=== PATIENT | female | born 1990 | race Two or more races ===

== ENCOUNTER 2016-09-19 11:14 | Emergency (ER) | payer MEDICAID ==
[~2016-09-19] VITALS: Ht 167.6 cm; Wt 79.4 kg
[2016-09-19 11:24] VITALS: BP 128/85
== END 2016-09-19 12:59 | disposition home or self-care (01) ==
LOC: ER 11:16
DX: K64.8 Other hemorrhoids (principal); J45.909 Unspecified asthma, uncomplicated; Z90.89 Acquired absence of other organs; Z88.9 Allergy status to unspecified drugs, medicaments and biological substances

== ENCOUNTER → 2016-09-19 | Emergency (ER) | payer MEDICAID ==
[~2016-09-19] MED LIST: MEDR150I IM
== END | disposition left against medical advice (07) ==
LOC: ER 01:36
DX: K92.1 Melena (principal); Z53.21 Procedure and treatment not carried out due to patient leaving prior to being seen by health care provider

== ENCOUNTER 2016-10-24 02:28 | Emergency (ER) | payer MEDICAID ==
[~2016-10-24] VITALS: Ht 160 cm; Wt 77.1 kg
[2016-10-24 06:44] LABS: Basophils # (auto) 0 uL; Basophils % (auto) 0.4 % (0.0-2.0); Eosinophils # (auto) 0 uL; Eosinophils % (auto) 0.3 % (0.0-7.0); Hematocrit 42.4 % (36.0-46.0); Hemoglobin 14.5 g/dL (12.2-16.2); Lymphocytes % (auto) 30.5 % (10.0-50.0); Mean Corpuscular Hemoglobin 32.1 pg (28.0-32.0); Mean Corpuscular Hgb Conc. 34.3 g/dL (32.0-36.0); Mean Corpuscular Volume 93.5 fL (80.0-100.0); Mean Platelet Volume 8.2 fL (7.4-10.4); Monocytes # (auto) 0.3 uL; Monocytes % (auto) 4.9 % (0.0-12.0); Neutrophils # (auto) 4.3 uL; Neutrophils % (auto) 63.9 % (37.0-80.0); Platelet Count (auto) 291 10^3/uL (140-450); Red Cell Distribution Width 13.1 % (11.6-16.0); White Blood Cell 6.7 10^3/uL (4.4-10.8)
[2016-10-24 07:17] LABS: Albumin 4.1 g/dL (3.4-5.0); BUN/Creatinine Ratio 14.5; Calcium 8.1 mg/dL (8.5-10.1); Magnesium 2.1 mg/dL (1.6-2.6); Potassium 3.9 mmol/L (3.5-5.1)
[2016-10-24 07:20] LABS: Total Protein 7.6 g/dL (6.4-8.2)
[2016-10-24 08:23] VITALS: BP 107/56
== END 2016-10-24 08:46 | disposition home or self-care (01) ==
LOC: ER 02:28
DX: S93.602A Unspecified sprain of left foot, initial encounter (principal); J45.909 Unspecified asthma, uncomplicated; F10.10 Alcohol abuse, uncomplicated; R73.9 Hyperglycemia, unspecified; F41.9 Anxiety disorder, unspecified; Z90.49 Acquired absence of other specified parts of digestive tract; Z88.8 Allergy status to other drugs, medicaments and biological substances; W18.39XA Other fall on same level, initial encounter; Y93.89 Activity, other specified; Y99.8 Other external cause status; Y92.099 Unspecified place in other non-institutional residence as the place of occurrence of the external cause
CPT/HCPCS: 36415; 73630; 80053; 80320; 82962; 83735; 84702; 85025

== ENCOUNTER 2017-03-11 18:51 | Emergency (ER) | payer MEDICAID ==
[~2017-03-11] VITALS: Ht 167.6 cm; Wt 74.8 kg
[2017-03-11 21:05] VITALS: BP 137/85
== END 2017-03-11 22:04 | disposition home or self-care (01) ==
LOC: ER 18:52
DX: F41.0 Panic disorder [episodic paroxysmal anxiety] (principal); Z90.49 Acquired absence of other specified parts of digestive tract; J45.909 Unspecified asthma, uncomplicated
CPT/HCPCS: 71020

== ENCOUNTER 2017-06-25 14:01 | Emergency (ER) | payer MEDICAID ==
[~2017-06-25] VITALS: Ht 167.6 cm; Wt 73.0 kg
[2017-06-25 14:22] VITALS: BP 131/90
[2017-06-25] MEDS ORDERED: cefTRIAXone SOD 1,000 MG VL IM ONE (16:00)
[2017-06-25 16:19] LABS: Urine Blood TRACE /uL (Negative); Urine Color Yellow (Yellow); Urine Glucose Normal (Normal); Urine Ketone 1+ (Negative); Urine Mucus FEW (None Seen); Urine Nitrite Negative (Negative); Urine RBC 3 /hpf (0 - 4); Urine Squamous Epithelial Cell MANY /hpf (<5)
[2017-06-25 16:54] LABS: Urine Bilirubin Negative (Negative)
== END 2017-06-25 16:28 | disposition home or self-care (01) ==
LOC: ER 14:01
DX: N39.0 Urinary tract infection, site not specified (principal); J45.909 Unspecified asthma, uncomplicated; Z91.018 Allergy to other foods; Z90.89 Acquired absence of other organs
CPT/HCPCS: 81001; 81025; 96372; 99283; J0696

== ENCOUNTER 2017-07-17 01:45 | Inpatient (IN) | payer MEDICAID ==
[~2017-07-17] VITALS: Ht 162.6 cm; Wt 78.5 kg
[2017-07-17 03:25] LABS: Basophils # (auto) 0 uL; Basophils % (auto) 0.1 % (0.0-2.0); Eosinophils # (auto) 0.1 uL; Eosinophils % (auto) 1.5 % (0.0-7.0); Hematocrit 40.5 % (36.0-46.0); Hemoglobin 13.9 g/dL (12.2-16.2); Lymphocytes % (auto) 42.1 % (10.0-50.0); Mean Corpuscular Hemoglobin 32.4 pg (28.0-32.0); Mean Corpuscular Hgb Conc. 34.4 g/dL (32.0-36.0); Mean Platelet Volume 7.9 fL (6.9-10.8); Monocytes # (auto) 0.8 uL; Monocytes % (auto) 8.1 % (0.0-12.0); Neutrophils # (auto) 4.6 uL; Neutrophils % (auto) 48.2 % (37.0-80.0); Nucleated Red Blood Cells % 0.1 %; Platelet Count (auto) 252 10^3/uL (140-450); Red Cell Distribution Width 12.9 % (11.8-14.3); White Blood Cell 9.6 10^3/uL (4.4-10.8)
[2017-07-17 04:18] LABS: Albumin 3.8 g/dL (3.4-5.0); BUN/Creatinine Ratio 12.3; Potassium 3.6 mmol/L (3.5-5.1)
[2017-07-17 04:55] LABS: Bilirubin, Total 0.8 mg/dL (0.2-1.0); Total Protein 7.8 g/dL (6.4-8.2)
[2017-07-17 05:51] LABS: Urine Bilirubin Negative (Negative); Urine Blood 1+ /uL (Negative); Urine Ca Oxalate Crystal MOD (None Seen); Urine Color Yellow (Yellow); Urine Glucose Normal (Normal); Urine Hyaline Cast FEW /lpf (0 - 2); Urine Ketone Negative (Negative); Urine Nitrite Negative (Negative); Urine RBC 6 /hpf (0 - 4); Urine Squamous Epithelial Cell FEW /hpf (<5); Urine Urobilinogen Normal (Negative); Urine pH 5.5 (5.0-8.0)
[2017-07-17] MEDS ORDERED: KETOROLAC TROMETH 30 MG/ML 1ML VIAL IV ONE (08:45)
[2017-07-17] MEDS ORDERED: SODIUM CHLORIDE 0.9% 1,000 ML IV ONE (08:45)
[2017-07-17] MEDS ORDERED: MORPHINE SULF INJ 2 MG/ML SYRINGE 1ML IV PRN (09:45)
[2017-07-17] MEDS: FAMOTIDINE (10MG/ML) 2ML VL IV SCH ×2 (10:13→22:13)
[2017-07-17] MEDS: SODIUM CHLORIDE 0.9% 1,000 ML IV SCH ×3 (10:13→23:21)
[2017-07-17 11:24] VITALS: BP 119/74
[2017-07-17 12:36] VITALS: BP 113/69
[2017-07-17] MEDS: metroNIDAZOLE 500MG/100ML 100 ML IV SCH ×2 (13:27→22:12)
[2017-07-17 16:56] VITALS: BP 109/72
[2017-07-17 18:29] LABS: Cholesterol 162 mg/dL (< 200); HDL Cholesterol 41 mg/dL (40-59); LDL Cholesterol 104 mg/dL (< 100); Triglycerides 229 mg/dL (< 150)
[2017-07-17] MEDS: MORPHINE SULF INJ 2 MG/ML SYRINGE 1ML IV PRN ×2 (18:39→23:26)
[2017-07-17 22:00] VITALS: BP 129/77
[2017-07-18 04:58] VITALS: BP 100/57
[2017-07-18 05:58] LABS: Basophils # (auto) 0 uL; Basophils % (auto) 0.3 % (0.0-2.0); Eosinophils # (auto) 0.1 uL; Eosinophils % (auto) 1.5 % (0.0-7.0); Hemoglobin 12.7 g/dL (12.2-16.2); Lymphocytes # (auto) 3.7 uL; Mean Corpuscular Hemoglobin 32.6 pg (28.0-32.0); Mean Corpuscular Hgb Conc. 34.3 g/dL (32.0-36.0); Mean Corpuscular Volume 95.1 fL (80.0-100.0); Mean Platelet Volume 7.4 fL (6.9-10.8); Monocytes # (auto) 0.6 uL; Monocytes % (auto) 7.4 % (0.0-12.0); Neutrophils # (auto) 3.3 uL; Neutrophils % (auto) 42.8 % (37.0-80.0); Nucleated Red Blood Cells % 0.1 %; Platelet Count (auto) 207 10^3/uL (140-450); Red Cell Distribution Width 12.9 % (11.8-14.3); White Blood Cell 7.7 10^3/uL (4.4-10.8)
[2017-07-18] MEDS: metroNIDAZOLE 500MG/100ML 100 ML IV SCH ×3 (06:09→22:00)
[2017-07-18] MEDS: SODIUM CHLORIDE 0.9% 1,000 ML IV SCH ×3 (06:10→17:51)
[2017-07-18 06:48] LABS: Cholesterol 148 mg/dL (< 200); HDL Cholesterol 38 mg/dL (40-59); LDL Cholesterol 98 mg/dL (< 100); Triglycerides 223 mg/dL (< 150)
[2017-07-18 06:50] LABS: Albumin 3.1 g/dL (3.4-5.0); BUN/Creatinine Ratio 13.2; Bilirubin, Total 1.5 mg/dL (0.2-1.0); Calcium 7.8 mg/dL (8.5-10.1); Potassium 3.8 mmol/L (3.5-5.1)
[2017-07-18] MEDS: MORPHINE SULF INJ 2 MG/ML SYRINGE 1ML IV PRN ×3 (08:42→19:01)
[2017-07-18] MEDS: PROMETHAZINE HCL 25 MG/ML 1ML IV PRN ×3 (08:42→19:02)
[2017-07-18] MEDS: cefTRIAXone 1GM/10ml IVPUSH 10 ML IV SCH (08:44)
[2017-07-18 08:57] VITALS: BP 99/57
[2017-07-18] MEDS: FAMOTIDINE (10MG/ML) 2ML VL IV SCH ×2 (10:01→22:00)
[2017-07-18 13:00] VITALS: BP 98/65
[2017-07-18 17:00] VITALS: BP 108/66
[2017-07-18 20:00] VITALS: BP 121/70
[2017-07-18 21:49] VITALS: BP 121/70
[2017-07-19] MEDS: SODIUM CHLORIDE 0.9% 1,000 ML IV SCH ×4 (01:34→21:34)
[2017-07-19] MEDS: PROMETHAZINE HCL 25 MG/ML 1ML IV PRN ×6 (02:41→20:30)
[2017-07-19] MEDS: MORPHINE SULF INJ 2 MG/ML SYRINGE 1ML IV PRN ×5 (02:42→20:31)
[2017-07-19 04:45] VITALS: BP 108/63
[2017-07-19] MEDS: metroNIDAZOLE 500MG/100ML 100 ML IV SCH (06:06)
[2017-07-19 06:27] LABS: Amylase 76 U/L (25-115)
[2017-07-19 09:05] VITALS: BP 103/63
[2017-07-19] MEDS: FAMOTIDINE (10MG/ML) 2ML VL IV SCH ×2 (10:24→22:00)
[2017-07-19] MEDS: cefTRIAXone 1GM/10ml IVPUSH 10 ML IV SCH (10:24)
[2017-07-19 14:06] VITALS: BP 113/77
[2017-07-19 16:40] VITALS: BP 162/92
[2017-07-19 22:00] VITALS: BP 116/78
[2017-07-19] MEDS ORDERED: PANTOPRAZOLE 40 MG/10 ML VIAL IV ONE (23:26)
[2017-07-20] MEDS: MORPHINE SULF INJ 2 MG/ML SYRINGE 1ML IV PRN ×6 (00:56→22:27)
[2017-07-20] MEDS: SODIUM CHLORIDE 0.9% 1,000 ML IV SCH ×3 (04:14→16:11)
[2017-07-20 05:19] VITALS: BP 99/57
[2017-07-20] MEDS: PROMETHAZINE HCL 25 MG/ML 1ML IV PRN ×7 (06:33→22:28)
[2017-07-20 08:00] VITALS: BP 117/70
[2017-07-20] MEDS: cefTRIAXone 1GM/10ml IVPUSH 10 ML IV SCH (10:44)
[2017-07-20] MEDS: FAMOTIDINE (10MG/ML) 2ML VL IV SCH ×2 (10:45→22:26)
[2017-07-20 13:00] VITALS: BP 111/66
[2017-07-20 17:30] VITALS: BP 124/67
[2017-07-20 23:51] VITALS: BP 120/81
[2017-07-21] MEDS: SODIUM CHLORIDE 0.9% 1,000 ML IV SCH ×2 (00:42→07:06)
[2017-07-21 05:24] VITALS: BP 100/59
[2017-07-21 09:00] VITALS: BP 107/59
[2017-07-21] MEDS: MORPHINE SULF INJ 2 MG/ML SYRINGE 1ML IV PRN (09:19)
[2017-07-21] MEDS: cefTRIAXone 1GM/10ml IVPUSH 10 ML IV SCH (09:25)
[2017-07-21] MEDS: FAMOTIDINE (10MG/ML) 2ML VL IV SCH (09:52)
[2017-07-21 12:48] VITALS: BP 119/54
== END 2017-07-21 14:55 | disposition home or self-care (01) | DRG 463 ==
LOC: ER 01:45 → OVERFLOW 01:46 → WEST WING 10:37
PROVIDERS: ADMIT Internal Medicine; ATTEND Internal Medicine
DX: N39.0 Urinary tract infection, site not specified (principal); K85.90 Acute pancreatitis without necrosis or infection, unspecified; E03.9 Hypothyroidism, unspecified; J45.909 Unspecified asthma, uncomplicated; Z82.3 Family history of stroke; Z82.49 Family history of ischemic heart disease and other diseases of the circulatory system; Z83.3 Family history of diabetes mellitus; Z80.9 Family history of malignant neoplasm, unspecified; Z90.49 Acquired absence of other specified parts of digestive tract; Z90.89 Acquired absence of other organs; Z91.018 Allergy to other foods
CPT/HCPCS: 36415; 71010; 74176; 76700; 80053; 80061; 81001; 82150; 83690; 83735; 84439; 84443; 84481; 84702; 85025; 85652; 86141; 87086; 87493; 96365; 96375; C9113; J1885; J3490

== ENCOUNTER 2018-03-30 12:26 | Emergency (ER) | payer MEDICAID ==
[~2018-03-30] VITALS: Ht 167.6 cm; Wt 78.9 kg
[2018-03-30 12:29] VITALS: BP 144/103
[2018-03-30] MEDS ORDERED: LOPERAMIDE HCL 2 MG CAP PO ONE (14:00)
[2018-03-30] MEDS ORDERED: DICYCLOMINE HCL (10MG/ML) 2 ML AMPULE IM ONE (14:00)
== END 2018-03-30 14:26 | disposition home or self-care (01) ==
LOC: ER 12:26
DX: K52.9 Noninfective gastroenteritis and colitis, unspecified (principal); J45.909 Unspecified asthma, uncomplicated; E07.9 Disorder of thyroid, unspecified; Z90.49 Acquired absence of other specified parts of digestive tract
CPT/HCPCS: 96372; 99283; J0500

== ENCOUNTER 2018-06-12 18:35 | Emergency (ER) | payer MEDICAID ==
[~2018-06-12] VITALS: Ht 167.6 cm; Wt 78.0 kg
[2018-06-12 18:58] VITALS: BP 144/85
[2018-06-12 19:21] LABS: Urine Bacteria FEW /hpf (None Seen); Urine Blood 1+ /uL (Negative); Urine WBC 5 /hpf (0 - 5)
[2018-06-12] MEDS ORDERED: cefTRIAXone SOD 1,000 MG VL IM ONE (22:30)
== END 2018-06-12 22:17 | disposition home or self-care (01) ==
LOC: ER 18:35
DX: N39.0 Urinary tract infection, site not specified (principal); J45.909 Unspecified asthma, uncomplicated; Z88.6 Allergy status to analgesic agent; Z91.018 Allergy to other foods
CPT/HCPCS: 81001; 81025; 96372; 99284; J0696

== ENCOUNTER 2018-08-29 23:33 | Emergency (ER) | payer MEDICAID ==
[~2018-08-29] VITALS: Ht 167.6 cm; Wt 76.7 kg
[2018-08-29 23:52] VITALS: BP 140/100
[2018-08-30 02:12] LABS: Urine Bacteria FEW /hpf (None Seen); Urine Blood 2+ /uL (Negative); Urine Hyaline Cast FEW /lpf (0 - 2); Urine Mucus FEW (None Seen); Urine Specific Gravity 1.021 (1.001-1.035); Urine WBC 1 /hpf (0 - 5)
== END 2018-08-30 03:29 | disposition home or self-care (01) ==
LOC: ER 23:47
DX: N39.0 Urinary tract infection, site not specified (principal); J45.909 Unspecified asthma, uncomplicated; Z88.6 Allergy status to analgesic agent; Z91.018 Allergy to other foods
CPT/HCPCS: 81001

== ENCOUNTER 2019-09-07 16:42 | Emergency (ER) | payer MEDICAID ==
[~2019-09-07] VITALS: Ht 167.6 cm; Wt 81.2 kg
[2019-09-07 18:48] VITALS: BP 156/43
[2019-09-07] MEDS ORDERED: DexAMETHasone SOD PHOS 10MG/1ML VIAL INJ IM ONE (19:15)
[2019-09-07] MEDS ORDERED: cefTRIAXone SOD 1,000 MG VL IM ONE (19:15)
[2019-09-07] MEDS ORDERED: LIDOCAINE W/ EPINEPHRINE 2% INJ 20ML VIAL IJ ONE (19:30)
[2019-09-07] MEDS ORDERED: HYDROcodone-ACET 10/325MG TAB PO ONE (19:30)
== END 2019-09-07 20:03 | disposition home or self-care (01) ==
LOC: ER 16:42
DX: N61.1 Abscess of the breast and nipple (principal); J45.909 Unspecified asthma, uncomplicated; E07.9 Disorder of thyroid, unspecified; Z88.6 Allergy status to analgesic agent; Z91.018 Allergy to other foods
CPT/HCPCS: 96372; 99283; J0696; J1100

== ENCOUNTER 2019-09-08 15:34 | Emergency (ER) | payer MEDICAID ==
[~2019-09-08] VITALS: Ht 167.6 cm; Wt 81.2 kg
[2019-09-08 15:47] VITALS: BP 155/82
== END 2019-09-08 19:29 | disposition home or self-care (01) ==
LOC: ER 15:34
DX: J45.909 Unspecified asthma, uncomplicated (principal); Z48.01 Encounter for change or removal of surgical wound dressing; Z88.6 Allergy status to analgesic agent

== ENCOUNTER → 2019-11-03 | Emergency (ER) | payer MEDICAID ==
[~2019-11-03] VITALS: Ht 167.6 cm; Wt 77.1 kg
[~2019-11-03] MED LIST changes: +LORazepam 0.5 MG TAB PO ONE
[2019-11-04 01:32] LABS: Basophils # (auto) 0 10 ^3/uL (0-0.2); Basophils % (auto) 0.5 % (0.0-2.0); Eosinophils # (auto) 0.1 10 ^3/uL (0-0.8); Eosinophils % (auto) 1.5 % (0.0-7.0); Hematocrit 39.5 % (36.0-46.0); Hemoglobin 13.8 g/dL (12.2-16.2); Lymphocytes # (auto) 3.8 10 ^3/uL (0.4-5.4); Lymphocytes % (auto) 43.7 % (10.0-50.0); Mean Corpuscular Hemoglobin 33.2 pg (28.0-32.0); Mean Corpuscular Hgb Conc. 35.1 g/dL (32.0-36.0); Mean Corpuscular Volume 94.8 fL (80.0-100.0); Monocytes # (auto) 0.6 10 ^3/uL (0-1.3); Monocytes % (auto) 6.7 % (0.0-12.0); Neutrophils # (auto) 4.2 10 ^3/uL (1.6-8.6); Neutrophils % (auto) 47.6 % (37.0-80.0); Nucleated Red Blood Cells % 0.3 %; Platelet Count (auto) 224 10^3/uL (140-450); Red Blood Cells 4.16 10^6/uL (4.0-5.20); Red Cell Distribution Width 13.2 % (11.8-14.3); White Blood Cell 8.8 10^3/uL (4.4-10.8)
[2019-11-04 01:54] LABS: Alanine Aminotransferase 61 U/L (13-56); Albumin 3.8 g/dL (3.4-5.0); Anion Gap 8 (5-15); Aspartate Aminotransferase 42 U/L (15-37); BUN/Creatinine Ratio 9.8; Blood Urea Nitrogen 9 mg/dL (7-18); Calcium 9.1 mg/dL (8.5-10.1); Carbon Dioxide 24 mmol/L (21-32); Chloride 104 mmol/L (98-107); GFR African American 94 mL/min; GFR Non-African American 78 mL/min; Glucose 194 mg/dL (74-106); Magnesium 1.6 mg/dL (1.6-2.6); Potassium 3.4 mmol/L (3.5-5.1); Sodium 136 mmol/L (136-145)
[2019-11-04 01:59] LABS: Alkaline Phosphatase 83 U/L (45-117); Bilirubin, Total 0.5 mg/dL (0.2-1.0); Total Protein 7.9 g/dL (6.4-8.2)
[2019-11-04 02:03] LABS: Beta HCG, Quantitative < 1 mlU/mL (1-3)
[2019-11-04 02:19] LABS: INR 0.93 (0.9-1.15); Partial Thromboplastin Time 27.1 sec (23.64-32.05)
[2019-11-04 03:00] VITALS: BP 135/87
== END | disposition home or self-care (01) ==
LOC: ER 23:29
DX: R07.89 Other chest pain (principal); F41.9 Anxiety disorder, unspecified; J45.909 Unspecified asthma, uncomplicated; E07.9 Disorder of thyroid, unspecified; Z88.6 Allergy status to analgesic agent; Z91.018 Allergy to other foods
CPT/HCPCS: 36415; 71045; 80053; 80320; 83735; 83880; 84443; 84484; 84702; 85025; 85379; 85610; 85730; 93005

== ENCOUNTER 2019-11-05 16:08 | Emergency (ER) | payer MEDICAID ==
[~2019-11-05] VITALS: Ht 167.6 cm; Wt 77.6 kg
[~2019-11-05 16:08] MED LIST changes: -LORazepam 0.5 MG TAB PO ONE
[2019-11-05 22:46] VITALS: BP 131/96
[2019-11-06] MEDS ORDERED: ONDANSETRON ODT 4 MG TAB PO ONE (00:45)
== END 2019-11-06 01:15 | disposition home or self-care (01) ==
LOC: ER 16:08
DX: R04.0 Epistaxis (principal); Z88.6 Allergy status to analgesic agent; Z88.8 Allergy status to other drugs, medicaments and biological substances
CPT/HCPCS: 30901; 99284; Q0162

== ENCOUNTER 2019-11-08 11:33 | Emergency (ER) | payer MEDICAID ==
[~2019-11-08] VITALS: Ht 167.6 cm; Wt 77.1 kg
[2019-11-08 13:03] VITALS: BP 146/98
[2019-11-08] MEDS ORDERED: OXYMETAZOLINE HCL 0.05 % NASAL SPRAY 15ML EACHNOSTRI ONE (13:45)
[2019-11-08] MEDS ORDERED: IBUPROFEN 600 MG TAB PO ONE (14:00)
== END 2019-11-08 14:38 | disposition home or self-care (01) ==
LOC: ER 11:34
DX: R04.0 Epistaxis (principal); J45.909 Unspecified asthma, uncomplicated; E07.9 Disorder of thyroid, unspecified
CPT/HCPCS: 30901

== ENCOUNTER 2020-08-16 16:22 | Inpatient (IN) | payer MEDICAID ==
[~2020-08-16] VITALS: Ht 167.6 cm; Wt 76.4 kg
[2020-08-16] MEDS ORDERED: SODIUM CHLORIDE 0.9% 1,000 ML IV ONE (17:00)
[2020-08-16 17:22] LABS: Albumin 3.8 g/dL (3.4-5.0); BUN/Creatinine Ratio 10.2; Calcium 8.5 mg/dL (8.5-10.1); Potassium 3.4 mmol/L (3.5-5.1)
[2020-08-16 17:25] LABS: Bilirubin, Total 0.5 mg/dL (0.2-1.0); Total Protein 7.9 g/dL (6.4-8.2)
[2020-08-16 17:29] LABS: Basophils # (auto) 0 10 ^3/uL (0-0.2); Basophils % (auto) 0.1 % (0.0-2.0); Eosinophils # (auto) 0 10 ^3/uL (0-0.8); Hematocrit 36.1 % (36.0-46.0); Hemoglobin 12.8 g/dL (12.2-16.2); Lymphocytes # (auto) 1.5 10 ^3/uL (0.4-5.4); Lymphocytes % (auto) 22.7 % (10.0-50.0); Mean Corpuscular Hemoglobin 33.5 pg (28.0-32.0); Mean Corpuscular Hgb Conc. 35.5 g/dL (32.0-36.0); Mean Corpuscular Volume 94.2 fL (80.0-100.0); Monocytes # (auto) 0.4 10 ^3/uL (0-1.3); Monocytes % (auto) 5.9 % (0.0-12.0); Neutrophils # (auto) 4.7 10 ^3/uL (1.6-8.6); Neutrophils % (auto) 71.3 % (37.0-80.0); Nucleated Red Blood Cells % 0.1 %; Red Blood Cells 3.83 10^6/uL (4.0-5.20); Red Cell Distribution Width 12.6 % (11.8-14.3); White Blood Cell 6.6 10^3/uL (4.4-10.8)
[2020-08-16 19:06] LABS: INR 0.95 (0.9-1.15); Partial Thromboplastin Time 26.6 sec (23.0-31.2)
[2020-08-16] MEDS ORDERED: ACETAMINOPHEN 325 MG TAB PO ONE (20:00)
[2020-08-16] MEDS ORDERED: AZITHROMYCIN 500MG/ 250ML 250 ML IV ONE (20:15)
[2020-08-16] MEDS ORDERED: ACETAMINOPHEN 500 MG TAB PO PRN (23:30)
[2020-08-16] MEDS ORDERED: DOCUSATE SOD 100 MG CAP PO PRN (23:30)
[2020-08-16] MEDS ORDERED: MORPHINE SULFATE INJECTION 2 MG/ML SYRG IV PRN (23:30)
[2020-08-16] MEDS ORDERED: NITROGLYCERIN 0.4 MG SL TAB SL PRN (23:30)
[2020-08-16] MEDS ORDERED: DEXTROSE (50%) 50ML SYRG IV PRN (23:30)
[2020-08-16] MEDS ORDERED: ONDANSETRON HCL 4 MG/2 ML VIAL IV PRN (23:30)
[2020-08-16] MEDS ORDERED: POTASSIUM CHL 20 Meq TABLET PO ONE (23:45)
[2020-08-17] MEDS: SODIUM CHLOR 0.9% PF (SALINE LOCK) 10ML VIAL/SYR IV SCH ×3 (05:12→22:00)
[2020-08-17] MEDS: ACCU-CHEK COMFORT CURVE STRIP VI SCH ×4 (06:07→22:00)
[2020-08-17] MEDS: InsuLIN REG 1unit/0.01ml Soln (100units/ml) SC SCH ×4 (06:08→22:00)
[2020-08-17 09:53] LABS: Basophils # (auto) 0 10 ^3/uL (0-0.2); Basophils % (auto) 0.1 % (0.0-2.0); Eosinophils # (auto) 0 10 ^3/uL (0-0.8); Eosinophils % (auto) 0.2 % (0.0-7.0); Hematocrit 34.6 % (36.0-46.0); Hemoglobin 12.1 g/dL (12.2-16.2); Lymphocytes # (auto) 3.2 10 ^3/uL (0.4-5.4); Lymphocytes % (auto) 50.9 % (10.0-50.0); Mean Corpuscular Hemoglobin 32.9 pg (28.0-32.0); Mean Corpuscular Volume 93.9 fL (80.0-100.0); Monocytes # (auto) 0.6 10 ^3/uL (0-1.3); Monocytes % (auto) 9.3 % (0.0-12.0); Neutrophils # (auto) 2.5 10 ^3/uL (1.6-8.6); Neutrophils % (auto) 39.5 % (37.0-80.0); Nucleated Red Blood Cells % 0.1 %; Red Blood Cells 3.69 10^6/uL (4.0-5.20); Red Cell Distribution Width 12.8 % (11.8-14.3); White Blood Cell 6.2 10^3/uL (4.4-10.8)
[2020-08-17] MEDS: BUDESONIDE (INHALATION) 180 MCG IH IN SCH ×2 (10:00→22:00)
[2020-08-17] MEDS ORDERED: ENOXAPARIN SOD 40 MG/0.4 ML SYRINGE SC SCH (10:00)
[2020-08-17] MEDS: DexAMETHasone SOD PHOS 10MG/1ML VIAL INJ IV SCH (10:03)
[2020-08-17] MEDS: PANTOPRAZOLE 40 MG/10 ML VIAL INJ IV SCH (10:03)
[2020-08-17] MEDS: ZINC SULFATE 220mg CAP or TAB PO SCH (10:03)
[2020-08-17] MEDS: ASCORBIC ACID 1,000 MG TAB PO SCH (10:03)
[2020-08-17] MEDS: MULTIPLE VITAMIN TAB PO SCH (10:03)
[2020-08-17] MEDS: CHOLECALCIFEROL (VITD3) 2,000 UNIT CAP/TAB PO SCH (10:04)
[2020-08-17 10:16] LABS: Potassium 3.5 mmol/L (3.5-5.1)
[2020-08-17 10:25] LABS: Albumin 3.4 g/dL (3.4-5.0); BUN/Creatinine Ratio 15.4; Bilirubin, Total 0.5 mg/dL (0.2-1.0); Calcium 8.8 mg/dL (8.5-10.1); Total Protein 7.6 g/dL (6.4-8.2)
[2020-08-17] MEDS: DOXYCYCLINE 100MG/250ML 250 ML IV SCH ×2 (10:57→22:00)
[2020-08-17] MEDS: HYDROcodone-ACET 5/325MG TAB PO PRN ×2 (12:29→20:45)
[2020-08-17] MEDS ORDERED: FUROSEMIDE 20 MG/2 ML VIAL IV ONE (13:15)
[2020-08-17] MEDS ORDERED: REMDESIVIR PER PHARMACY 0 ML IV SCH (13:15)
[2020-08-17] MEDS ORDERED: POTASSIUM CHL 10 Meq TABLET PO ONE (13:15)
[2020-08-17] MEDS ORDERED: REMDESIVIR 200 MG in NS 210ml LOADING DOSE ADULT IV ONE (15:00)
[2020-08-17] MEDS: ENOXAPARIN SOD 40 MG/0.4 ML SYRINGE SC SCH (22:00)
[2020-08-18] MEDS ORDERED: QUEtiapine FUMARATE 100 MG TAB ONE (04:28)
[2020-08-18] MEDS: HYDROcodone-ACET 5/325MG TAB PO PRN (04:40)
[2020-08-18] MEDS ORDERED: QUEtiapine FUMARATE 100 MG TAB PO ONE (04:45)
[2020-08-18] MEDS: SODIUM CHLOR 0.9% PF (SALINE LOCK) 10ML VIAL/SYR IV SCH ×3 (06:00→23:26)
[2020-08-18] MEDS: ACCU-CHEK COMFORT CURVE STRIP VI SCH ×4 (07:00→23:29)
[2020-08-18] MEDS: InsuLIN REG 1unit/0.01ml Soln (100units/ml) SC SCH ×4 (07:00→23:28)
[2020-08-18 07:58] LABS: Potassium 3.5 mmol/L (3.5-5.1)
[2020-08-18 08:15] LABS: Albumin 3.3 g/dL (3.4-5.0); BUN/Creatinine Ratio 22.8; Bilirubin, Total 0.4 mg/dL (0.2-1.0); CRP High Sensitivity 3.68 mg/dL (< 0.3); Calcium 8.9 mg/dL (8.5-10.1); Total Protein 7.6 g/dL (6.4-8.2)
[2020-08-18] MEDS: BUDESONIDE (INHALATION) 180 MCG IH IN SCH ×2 (09:46→19:55)
[2020-08-18] MEDS: ZINC SULFATE 220mg CAP or TAB PO SCH (10:00)
[2020-08-18] MEDS: ENOXAPARIN SOD 40 MG/0.4 ML SYRINGE SC SCH ×2 (10:00→23:28)
[2020-08-18] MEDS: PANTOPRAZOLE 40 MG/10 ML VIAL INJ IV SCH (10:00)
[2020-08-18] MEDS: FUROSEMIDE 20 MG/2 ML VIAL IV SCH (10:00)
[2020-08-18] MEDS: POTASSIUM CHL 10 Meq TABLET PO SCH (10:00)
[2020-08-18] MEDS: DexAMETHasone SOD PHOS 10MG/1ML VIAL INJ IV SCH (10:29)
[2020-08-18] MEDS: MULTIPLE VITAMIN TAB PO SCH (10:29)
[2020-08-18] MEDS: DOXYCYCLINE 100MG/250ML 250 ML IV SCH ×2 (10:29→23:27)
[2020-08-18] MEDS: ASCORBIC ACID 1,000 MG TAB PO SCH (10:29)
[2020-08-18] MEDS: CHOLECALCIFEROL (VITD3) 2,000 UNIT CAP/TAB PO SCH (10:29)
[2020-08-18] MEDS: REMDESIVIR 100 MG in SODIUM CHL 0.9% 250 ML IV SCH (15:00)
[2020-08-18] MEDS: QUEtiapine FUMARATE 100 MG TAB PO SCH (23:27)
[2020-08-19 03:00] VITALS: BP 128/87
[2020-08-19] MEDS: HYDROcodone-ACET 5/325MG TAB PO PRN ×4 (03:29→20:16)
[2020-08-19] MEDS ORDERED: QUET200T4 PO (05:25)
[2020-08-19] MEDS ORDERED: DIPH1TAB30 PO (05:32)
[2020-08-19] MEDS ORDERED: ESCI20TA PO (05:32)
[2020-08-19] MEDS ORDERED: GABA300C10 PO (05:32)
[2020-08-19] MEDS ORDERED: IBUP800T27 PO (05:32)
[2020-08-19] MEDS ORDERED: DILT40TA PO (05:32)
[2020-08-19] MEDS ORDERED: BUSP15TA60 PO (05:32)
[2020-08-19] MEDS: ACCU-CHEK COMFORT CURVE STRIP VI SCH ×4 (06:20→21:43)
[2020-08-19] MEDS: SODIUM CHLOR 0.9% PF (SALINE LOCK) 10ML VIAL/SYR IV SCH ×3 (06:20→21:08)
[2020-08-19] MEDS: InsuLIN REG 1unit/0.01ml Soln (100units/ml) SC SCH ×4 (06:21→21:59)
[2020-08-19] MEDS: BUDESONIDE (INHALATION) 180 MCG IH IN SCH (06:37)
[2020-08-19 08:00] VITALS: BP 129/72
[2020-08-19 08:48] LABS: Albumin 3.9 g/dL (3.4-5.0); BUN/Creatinine Ratio 31.6; Calcium 9.6 mg/dL (8.5-10.1); Potassium 3.4 mmol/L (3.5-5.1)
[2020-08-19] MEDS: ALBUTEROL SULF HFA 90MCG INH 200DOSE IN PRN (08:58)
[2020-08-19 09:11] LABS: Bilirubin, Total 0.4 mg/dL (0.2-1.0); Total Protein 8.5 g/dL (6.4-8.2)
[2020-08-19] MEDS: PANTOPRAZOLE 40 MG/10 ML VIAL INJ IV SCH (10:00)
[2020-08-19] MEDS: POTASSIUM CHL 10 Meq TABLET PO SCH (10:19)
[2020-08-19] MEDS: MULTIPLE VITAMIN TAB PO SCH (10:19)
[2020-08-19] MEDS: ASCORBIC ACID 1,000 MG TAB PO SCH (10:19)
[2020-08-19] MEDS: ZINC SULFATE 220mg CAP or TAB PO SCH (10:19)
[2020-08-19] MEDS: DOXYCYCLINE 100MG/250ML 250 ML IV SCH ×2 (10:20→21:43)
[2020-08-19] MEDS: FUROSEMIDE 20 MG/2 ML VIAL IV SCH (10:20)
[2020-08-19] MEDS: DexAMETHasone SOD PHOS 10MG/1ML VIAL INJ IV SCH (10:20)
[2020-08-19] MEDS: ENOXAPARIN SOD 40 MG/0.4 ML SYRINGE SC SCH ×2 (11:32→21:43)
[2020-08-19] MEDS: CHOLECALCIFEROL (VITD3) 2,000 UNIT CAP/TAB PO SCH (11:32)
[2020-08-19 16:00] VITALS: BP 113/78
[2020-08-19] MEDS: REMDESIVIR 100 MG in SODIUM CHL 0.9% 250 ML IV SCH (17:27)
[2020-08-19 17:55] VITALS: BP 125/73
[2020-08-19] MEDS: QUEtiapine FUMARATE 100 MG TAB PO SCH (21:42)
[2020-08-20] VITALS: BP 121/72
[2020-08-20] MEDS: HYDROcodone-ACET 5/325MG TAB PO PRN ×4 (01:12→16:00)
[2020-08-20] MEDS: SODIUM CHLOR 0.9% PF (SALINE LOCK) 10ML VIAL/SYR IV SCH ×2 (05:15→12:02)
[2020-08-20] MEDS: ACCU-CHEK COMFORT CURVE STRIP VI SCH ×3 (06:07→17:00)
[2020-08-20] MEDS: InsuLIN REG 1unit/0.01ml Soln (100units/ml) SC SCH ×3 (06:11→17:00)
[2020-08-20 06:25] LABS: Basophils # (auto) 0 10 ^3/uL (0-0.2); Basophils % (auto) 0.1 % (0.0-2.0); Eosinophils # (auto) 0 10 ^3/uL (0-0.8); Eosinophils % (auto) 0.1 % (0.0-7.0); Hematocrit 37.7 % (36.0-46.0); Hemoglobin 13.3 g/dL (12.2-16.2); Lymphocytes # (auto) 4.6 10 ^3/uL (0.4-5.4); Lymphocytes % (auto) 45.5 % (10.0-50.0); Mean Corpuscular Hgb Conc. 35.3 g/dL (32.0-36.0); Mean Corpuscular Volume 93.4 fL (80.0-100.0); Monocytes # (auto) 0.8 10 ^3/uL (0-1.3); Monocytes % (auto) 7.7 % (0.0-12.0); Neutrophils # (auto) 4.7 10 ^3/uL (1.6-8.6); Neutrophils % (auto) 46.6 % (37.0-80.0); Nucleated Red Blood Cells % 0.1 %; Red Blood Cells 4.04 10^6/uL (4.0-5.20); Red Cell Distribution Width 12.9 % (11.8-14.3); White Blood Cell 10.1 10^3/uL (4.4-10.8)
[2020-08-20 06:42] LABS: Potassium 3.4 mmol/L (3.5-5.1)
[2020-08-20 06:49] LABS: Albumin 3.7 g/dL (3.4-5.0); BUN/Creatinine Ratio 27.7; Bilirubin, Total 0.4 mg/dL (0.2-1.0); CRP High Sensitivity 0.89 mg/dL (< 0.3); Calcium 9.4 mg/dL (8.5-10.1); Total Protein 8.1 g/dL (6.4-8.2)
[2020-08-20 08:00] VITALS: BP 113/67
[2020-08-20] MEDS: MULTIPLE VITAMIN TAB PO SCH (09:18)
[2020-08-20] MEDS: ZINC SULFATE 220mg CAP or TAB PO SCH (09:18)
[2020-08-20] MEDS: PANTOPRAZOLE 40 MG/10 ML VIAL INJ IV SCH (09:19)
[2020-08-20] MEDS: ENOXAPARIN SOD 40 MG/0.4 ML SYRINGE SC SCH (09:19)
[2020-08-20] MEDS: POTASSIUM CHL 10 Meq TABLET PO SCH (09:19)
[2020-08-20] MEDS: ASCORBIC ACID 1,000 MG TAB PO SCH (09:19)
[2020-08-20] MEDS: CHOLECALCIFEROL (VITD3) 2,000 UNIT CAP/TAB PO SCH (09:19)
[2020-08-20] MEDS: DOXYCYCLINE 100MG/250ML 250 ML IV SCH (09:19)
[2020-08-20] MEDS: FUROSEMIDE 20 MG/2 ML VIAL IV SCH (09:20)
[2020-08-20] MEDS: DexAMETHasone SOD PHOS 10MG/1ML VIAL INJ IV SCH (09:20)
[2020-08-20] MEDS: BUDESONIDE (INHALATION) 180 MCG IH IN SCH (12:00)
[2020-08-20] MEDS: ALBUTEROL SULF HFA 90MCG INH 200DOSE IN PRN (12:00)
[2020-08-20 15:57] VITALS: BP 121/70
[2020-08-20] MEDS: REMDESIVIR 100 MG in SODIUM CHL 0.9% 250 ML IV SCH (16:00)
== END 2020-08-20 20:15 | disposition home or self-care (01) | DRG 137 ==
LOC: ER 16:22 → TELE 23:18 → TELE-WESTW 08-19 02:49
PROVIDERS: ADMIT Nurse Practitioner Family; ATTEND Internal Medicine
PROC: XW033E5 Introduction of Remdesivir Anti-infective into Peripheral Vein, Percutaneous Approach, New Technology Group 5 (ICD-10-PCS; principal; 2020-08-17)
DX: U07.1 COVID-19 (principal); J96.01 Acute respiratory failure with hypoxia; J12.82 Pneumonia due to coronavirus disease 2019; E87.6 Hypokalemia; E03.9 Hypothyroidism, unspecified; D68.59 Other primary thrombophilia; F41.9 Anxiety disorder, unspecified; Z78.9 Other specified health status; Z81.3 Family history of other psychoactive substance abuse and dependence; Z82.49 Family history of ischemic heart disease and other diseases of the circulatory system; Z82.5 Family history of asthma and other chronic lower respiratory diseases; Z90.49 Acquired absence of other specified parts of digestive tract; R73.9 Hyperglycemia, unspecified; Z88.6 Allergy status to analgesic agent; Z91.018 Allergy to other foods; F31.9 Bipolar disorder, unspecified
CPT/HCPCS: 36415; 71045; 80053; 82306; 82728; 82962; 83036; 83605; 83615; 83735; 84443; 84702; 85025; 85379; 85610; 85730; 86141; 86850; 86900; 86901; 87426; 93005; 94640; 96361; 96365; C9113; G0378; J1100; J1815; J3490

== ENCOUNTER 2021-12-19 12:41 | Inpatient (IN) | payer BC, MEDICAID ==
[~2021-12-19] VITALS: Ht 167.6 cm; Wt 82.2 kg
[~2021-12-19 12:41] MED LIST changes: +BUSP15TA60 PO; +DILT40TA PO; +DIPH1TAB30 PO; +ESCI20TA PO; +GABA300C10 PO; +QUET200T4 PO
[2021-12-19] MEDS ORDERED: FAMOTIDINE (10MG/ML) 2ML VL IV ONE (13:30)
[2021-12-19] MEDS ORDERED: ONDANSETRON HCL 4 MG/2 ML VIAL IV ONE (13:30)
[2021-12-19] MEDS ORDERED: SODIUM CHLORIDE 0.9% 1,000 ML IV ONE (13:30)
[2021-12-19 14:22] LABS: Basophils # (auto) 0 10 ^3/uL (0-0.2); Basophils % (auto) 0.5 % (0.0-2.0); Eosinophils # (auto) 0 10 ^3/uL (0-0.8); Eosinophils % (auto) 0.4 % (0.0-7.0); Hematocrit 37.5 % (36.0-46.0); Hemoglobin 13.3 g/dL (12.2-16.2); Lymphocytes # (auto) 2.3 10 ^3/uL (0.4-5.4); Mean Corpuscular Hemoglobin 33.1 pg (28.0-32.0); Mean Corpuscular Hgb Conc. 35.4 g/dL (32.0-36.0); Mean Corpuscular Volume 93.4 fL (80.0-100.0); Monocytes # (auto) 0.4 10 ^3/uL (0-1.3); Monocytes % (auto) 5.6 % (0.0-12.0); Neutrophils # (auto) 4.1 10 ^3/uL (1.6-8.6); Neutrophils % (auto) 59.5 % (37.0-80.0); Nucleated Red Blood Cells % 0.2 %; Red Blood Cells 4.01 10^6/uL (4.0-5.20); Red Cell Distribution Width 13.1 % (11.8-14.3); White Blood Cell 6.9 10^3/uL (4.4-10.8)
[2021-12-19 14:59] LABS: Urine Bacteria NONE SEEN /hpf (None Seen); Urine Blood 3+ /uL (Negative); Urine Specific Gravity 1.046 (1.001-1.035); Urine WBC 6 /hpf (0 - 5)
[2021-12-19 15:39] LABS: Potassium 3.8 mmol/L (3.5-5.1)
[2021-12-19 15:41] LABS: BUN/Creatinine Ratio 12.1; Bilirubin, Total 0.9 mg/dL (0.2-1.0); Calcium 8.7 mg/dL (8.5-10.1)
[2021-12-19 15:42] LABS: Albumin 3.6 g/dL (3.4-5.0); Total Protein 7.7 g/dL (6.4-8.2)
[2021-12-19] MEDS ORDERED: POTASSIUM CHL 20MEQ/100ML 200 ML IV PRN (17:15)
[2021-12-19] MEDS ORDERED: DEXTROSE (50%) 50ML SYRG IV PRN (17:15)
[2021-12-19] MEDS: InsuLIN R (HUMAN) 100 UNITS in SODIUM CHL 0.9% 99 ML IV SCH ×3 (18:13→23:10)
[2021-12-19] MEDS: ACCU-CHEK COMFORT CURVE STRIP VI SCH ×4 (18:13→23:10)
[2021-12-19] MEDS ORDERED: ONDANSETRON HCL 4 MG/2 ML VIAL IV PRN (19:15)
[2021-12-19 20:25] LABS: Bilirubin, Total 1.1 mg/dL (0.2-1.0)
[2021-12-19] MEDS ORDERED: SODIUM CHLORIDE 0.9% 1,000 ML IV SCH (21:15)
[2021-12-19 23:48] LABS: Bilirubin, Direct < 0.1 mg/dL (0-0.2)
[2021-12-20] MEDS ORDERED: PRAZOSIN HCL 1 MG CAP PO ONE (00:45)
[2021-12-20] MEDS ORDERED: QUEtiapine FUMARATE 100 MG TAB PO ONE (00:45)
[2021-12-20] MEDS ORDERED: dilTIAZem 120MG ER CAP PO ONE (00:45)
[2021-12-20] MEDS: ACCU-CHEK COMFORT CURVE STRIP VI SCH ×16 (00:50→22:00)
[2021-12-20] MEDS: InsuLIN R (HUMAN) 100 UNITS in SODIUM CHL 0.9% 99 ML IV SCH ×8 (00:59→14:21)
[2021-12-20 05:41] LABS: Anion Gap 9 (5-15); Carbon Dioxide 23 mmol/L (21-32); Chloride 100 mmol/L (98-107); Sodium 132 mmol/L (136-145)
[2021-12-20 05:52] LABS: Bilirubin, Total 1.1 mg/dL (0.2-1.0); GFR African American 93 mL/min; GFR Non-African American 77 mL/min
[2021-12-20 06:54] LABS: Basophils # (auto) 0 10 ^3/uL (0-0.2); Basophils % (auto) 0.7 % (0.0-2.0); Eosinophils # (auto) 0 10 ^3/uL (0-0.8); Eosinophils % (auto) 0.7 % (0.0-7.0); Hematocrit 32.8 % (36.0-46.0); Hemoglobin 11.3 g/dL (12.2-16.2); Lymphocytes # (auto) 2.5 10 ^3/uL (0.4-5.4); Lymphocytes % (auto) 35.7 % (10.0-50.0); Mean Corpuscular Hemoglobin 32.6 pg (28.0-32.0); Mean Corpuscular Hgb Conc. 34.6 g/dL (32.0-36.0); Mean Corpuscular Volume 94.2 fL (80.0-100.0); Monocytes # (auto) 0.4 10 ^3/uL (0-1.3); Monocytes % (auto) 5.3 % (0.0-12.0); Neutrophils # (auto) 4.1 10 ^3/uL (1.6-8.6); Neutrophils % (auto) 57.6 % (37.0-80.0); Nucleated Red Blood Cells % 0.9 %; Red Blood Cells 3.48 10^6/uL (4.0-5.20); Red Cell Distribution Width 13.4 % (11.8-14.3)
[2021-12-20 08:24] LABS: Aspartate Aminotransferase 75 U/L (15-37); BUN/Creatinine Ratio 13.2; Blood Urea Nitrogen 12 mg/dL (7-18)
[2021-12-20 08:25] LABS: Albumin 2.5 g/dL (3.4-5.0); Cholesterol 652 mg/dL (< 200)
[2021-12-20 08:26] LABS: Alkaline Phosphatase 53 U/L (45-117); Glucose 306 mg/dL (74-106)
[2021-12-20 08:27] LABS: Alanine Aminotransferase 61 U/L (13-56)
[2021-12-20 08:28] LABS: Calcium 6.4 mg/dL (8.5-10.1)
[2021-12-20 08:29] LABS: HDL Cholesterol 56 mg/dL (40-59); Total Protein 5.7 g/dL (6.4-8.2)
[2021-12-20 08:30] LABS: Triglycerides > 4000 mg/dL (< 150)
[2021-12-20 11:00] LABS: Albumin 2.5 g/dL (3.4-5.0); Anion Gap 10 (5-15); BUN/Creatinine Ratio 8.7; Blood Urea Nitrogen 9 mg/dL (7-18); Carbon Dioxide 22 mmol/L (21-32); Chloride 100 mmol/L (98-107); GFR African American 81 mL/min; GFR Non-African American 67 mL/min; Glucose 281 mg/dL (74-106); Sodium 132 mmol/L (136-145)
[2021-12-20 11:14] LABS: Alkaline Phosphatase 55 U/L (45-117); Aspartate Aminotransferase 106 U/L (15-37)
[2021-12-20 11:15] LABS: Alanine Aminotransferase 126 U/L (13-56)
[2021-12-20 11:20] LABS: Calcium < 5.0 mg/dL (8.5-10.1); Potassium 2.9 mmol/L (3.5-5.1)
[2021-12-20] MEDS ORDERED: POTASSIUM CHL 20 Meq TABLET PO ONE (11:30)
[2021-12-20] MEDS: D5W/SOD CHL 0.45%/KCL 20MEQ 1,000 ML IV SCH ×2 (12:02→23:33)
[2021-12-20 14:41] LABS: Albumin 2.6 g/dL (3.4-5.0); Potassium 3.2 mmol/L (3.5-5.1)
[2021-12-20] MEDS ORDERED: DEXTROSE (50%) 50ML SYRG IV PRN (15:00)
[2021-12-20] MEDS ORDERED: INSULIN LANTUS (GLARGINE) 1 /0.01ml (100units/ml) SC ONE (15:00)
[2021-12-20 16:44] LABS: BUN/Creatinine Ratio 9.4
[2021-12-20 16:47] LABS: Total Protein 6.3 g/dL (6.4-8.2)
[2021-12-20] MEDS: InsuLIN REG 1unit/0.01ml Soln (100units/ml) SC SCH (17:06)
[2021-12-20 18:57] LABS: Anion Gap 9 (5-15); Carbon Dioxide 22 mmol/L (21-32); Chloride 101 mmol/L (98-107); Potassium 3.1 mmol/L (3.5-5.1); Sodium 132 mmol/L (136-145)
[2021-12-20 18:58] LABS: GFR African American 81 mL/min; GFR Non-African American 67 mL/min
[2021-12-20 18:59] LABS: Albumin 2.7 g/dL (3.4-5.0)
[2021-12-20 19:16] LABS: BUN/Creatinine Ratio 10.7; Blood Urea Nitrogen 11 mg/dL (7-18); Total Protein 6.6 g/dL (6.4-8.2)
[2021-12-20 19:17] LABS: Calcium 7.2 mg/dL (8.5-10.1); Glucose 238 mg/dL (74-106)
[2021-12-20 19:52] LABS: Alanine Aminotransferase 101 U/L (13-56); Alkaline Phosphatase 66 U/L (45-117); Aspartate Aminotransferase 126 U/L (15-37)
[2021-12-20] MEDS ORDERED: InsuLIN REG 1unit/0.01ml Soln (100units/ml) SC SCH (22:00)
[2021-12-20 23:24] VITALS: BP 132/89
[2021-12-20] MEDS: QUEtiapine FUMARATE 100 MG TAB PO SCH (23:32)
[2021-12-20] MEDS: INSULIN LANTUS (GLARGINE) 1 /0.01ml (100units/ml) SC SCH (23:32)
[2021-12-20] MEDS ORDERED: RISP1TAB63 PO (23:42)
[2021-12-20] MEDS ORDERED: [UNRECOGNIZED DRUG - CODE] PO (23:42)
[2021-12-20] MEDS ORDERED: DILT-29 PO (23:42)
[2021-12-20] MEDS ORDERED: PRAZ5CAP PO (23:42)
[2021-12-20] MEDS ORDERED: QUET300T24 PO (23:42)
[2021-12-21 05:00] VITALS: BP 117/59
[2021-12-21 06:13] LABS: White Blood Cell 6.7 10^3/uL (4.4-10.8)
[2021-12-21 06:35] LABS: Albumin 2.4 g/dL (3.4-5.0); Calcium 7.2 mg/dL (8.5-10.1)
[2021-12-21] MEDS: ACCU-CHEK COMFORT CURVE STRIP VI SCH ×4 (06:50→21:37)
[2021-12-21] MEDS: InsuLIN REG 1unit/0.01ml Soln (100units/ml) SC SCH ×3 (06:50→18:30)
[2021-12-21 08:59] LABS: Hematocrit 32.9 % (36.0-46.0); Hemoglobin 11.9 g/dL (12.2-16.2); Mean Corpuscular Hgb Conc. 36.2 g/dL (32.0-36.0); Mean Corpuscular Volume 91.2 fL (80.0-100.0); Red Cell Distribution Width 8.9 % (11.8-14.3)
[2021-12-21 09:00] VITALS: BP 98/59
[2021-12-21 09:03] LABS: Band Neutrophils % (manual) 0; Blast Cells 0; Metamyelocytes % 0; Myelocytes % 0; Promyelocytes % 0
[2021-12-21] MEDS: D5W/SOD CHL 0.45%/KCL 20MEQ 1,000 ML IV SCH (09:33)
[2021-12-21 13:00] VITALS: BP 131/87
[2021-12-21] MEDS: SODIUM CHLORIDE 0.9% 1,000 ML IV SCH ×2 (15:00→21:41)
[2021-12-21 16:52] VITALS: BP 119/76
[2021-12-21 19:09] LABS: Basophils % (manual) 1 (0.0-2.0); Eosinophils % (manual) 2 (0-7); Lymphocytes % (manual) 62 (10.0-50.0); Monocytes % (manual) 4 (0-12); Reactive Lymphocytes 3
[2021-12-21] MEDS: INSULIN LANTUS (GLARGINE) 1 /0.01ml (100units/ml) SC SCH (21:36)
[2021-12-21] MEDS: FAMOTIDINE 20 MG TAB PO SCH (21:36)
[2021-12-21] MEDS: QUEtiapine FUMARATE 100 MG TAB PO SCH (21:37)
[2021-12-21 22:00] VITALS: BP 142/95
[2021-12-22 05:00] VITALS: BP 124/79
[2021-12-22 05:32] LABS: Albumin 2.2 g/dL (3.4-5.0); Potassium 3.8 mmol/L (3.5-5.1)
[2021-12-22 05:59] LABS: Basophils # (auto) 0 10 ^3/uL (0-0.2); Basophils % (auto) 0.5 % (0.0-2.0); Eosinophils # (auto) 0.1 10 ^3/uL (0-0.8); Eosinophils % (auto) 1.7 % (0.0-7.0); Hematocrit 30.3 % (36.0-46.0); Hemoglobin 10.4 g/dL (12.2-16.2); Lymphocytes # (auto) 3.4 10 ^3/uL (0.4-5.4); Mean Corpuscular Hemoglobin 32.2 pg (28.0-32.0); Mean Corpuscular Hgb Conc. 34.5 g/dL (32.0-36.0); Mean Corpuscular Volume 93.4 fL (80.0-100.0); Monocytes # (auto) 0.4 10 ^3/uL (0-1.3); Monocytes % (auto) 6.8 % (0.0-12.0); Neutrophils # (auto) 2.3 10 ^3/uL (1.6-8.6); Nucleated Red Blood Cells % 0.5 %; Red Blood Cells 3.24 10^6/uL (4.0-5.20); Red Cell Distribution Width 13.5 % (11.8-14.3); White Blood Cell 6.2 10^3/uL (4.4-10.8)
[2021-12-22] MEDS: InsuLIN REG 1unit/0.01ml Soln (100units/ml) SC SCH ×3 (06:38→17:00)
[2021-12-22] MEDS: ACCU-CHEK COMFORT CURVE STRIP VI SCH ×4 (06:39→22:13)
[2021-12-22 08:13] LABS: BUN/Creatinine Ratio 10.6
[2021-12-22 08:14] LABS: Calcium 7.6 mg/dL (8.5-10.1); Total Protein 5.9 g/dL (6.4-8.2)
[2021-12-22 09:00] VITALS: BP 116/71
[2021-12-22] MEDS: FAMOTIDINE 20 MG TAB PO SCH ×2 (10:00→22:02)
[2021-12-22] MEDS: SODIUM CHLORIDE 0.9% 1,000 ML IV SCH ×2 (10:01→13:11)
[2021-12-22 13:00] VITALS: BP 134/77
[2021-12-22 13:32] LABS: Hepatitis A Ab IgM Negative; Hepatitis B Core IgM Negative; Hepatitis C Antibody Negative (Negative)
[2021-12-22] MEDS: busPIRone HCL 10 MG TAB PO SCH ×2 (15:29→22:02)
[2021-12-22 17:00] VITALS: BP 140/93
[2021-12-22 22:00] VITALS: BP 144/96
[2021-12-22] MEDS ORDERED: QUEtiapine FUMARATE 100 MG TAB PO SCH (22:00)
[2021-12-22] MEDS: INSULIN LANTUS (GLARGINE) 1 /0.01ml (100units/ml) SC SCH (22:13)
[2021-12-23] MEDS: SODIUM CHLORIDE 0.9% 1,000 ML IV SCH (04:55)
[2021-12-23 04:56] VITALS: BP 120/77
[2021-12-23] MEDS: busPIRone HCL 10 MG TAB PO SCH ×2 (06:21→14:00)
[2021-12-23] MEDS: InsuLIN REG 1unit/0.01ml Soln (100units/ml) SC SCH ×2 (06:22→12:58)
[2021-12-23] MEDS: ACCU-CHEK COMFORT CURVE STRIP VI SCH ×2 (06:22→11:30)
[2021-12-23 07:51] LABS: Potassium 3.2 mmol/L (3.5-5.1)
[2021-12-23 07:52] LABS: Calcium 7.6 mg/dL (8.5-10.1)
[2021-12-23 09:00] VITALS: BP 116/72
[2021-12-23] MEDS: FAMOTIDINE 20 MG TAB PO SCH (09:25)
[2021-12-23] MEDS ORDERED: risperiDONE 1 MG TAB PO SCH (10:00)
[2021-12-23] MEDS ORDERED: POTASSIUM CHL 20 Meq TABLET PO ONE (10:30)
[2021-12-23 13:00] VITALS: BP 125/82
[2021-12-23 17:00] VITALS: BP 133/79
== END 2021-12-23 18:55 | disposition home or self-care (01) | DRG 639 ==
LOC: ER 12:41 → ICU CENTRL 19:39 → OVERFLOW 12-20 00:36 → CENTRAL 12-20 22:06
PROVIDERS: ADMIT Registered Nurse; ATTEND Internal Medicine
DX: E11.10 Type 2 diabetes mellitus with ketoacidosis without coma (principal); E11.22 Type 2 diabetes mellitus with diabetic chronic kidney disease; E86.0 Dehydration; I12.9 Hypertensive chronic kidney disease with stage 1 through stage 4 chronic kidney disease, or unspecified chronic kidney disease; N18.2 Chronic kidney disease, stage 2 (mild); E87.6 Hypokalemia; Z20.822 Contact with and (suspected) exposure to COVID-19; F41.9 Anxiety disorder, unspecified; F31.9 Bipolar disorder, unspecified; R74.01 Elevation of levels of liver transaminase levels; Z82.49 Family history of ischemic heart disease and other diseases of the circulatory system; Z90.49 Acquired absence of other specified parts of digestive tract
CPT/HCPCS: 36415; 36600; 76705; 80048; 80053; 80061; 80074; 81001; 81025; 82010; 82247; 82248; 82805; 82962; 83036; 83605; 83735; 83935; 84443; 85007; 85025; 85027; 96361; 96374; 96375; 99291; G0378; J1815; J2405; J3480; J3490

== ENCOUNTER 2021-12-24 04:27 | Emergency (ER) | payer BC, MEDICAID ==
[~2021-12-24] VITALS: Ht 167.6 cm; Wt 78.0 kg
[~2021-12-24 04:27] MED LIST changes: +DILT-29 PO; -DILT40TA PO; -DIPH1TAB30 PO; -ESCI20TA PO; -GABA300C10 PO; -MEDR150I IM; +PRAZ5CAP PO; -QUET200T4 PO; +QUET300T24 PO; +RISP1TAB63 PO; +[UNRECOGNIZED DRUG - CODE] PO
[2021-12-24 04:28] VITALS: BP 168/110
[2021-12-24 05:37] LABS: Albumin 3.3 g/dL (3.4-5.0); BUN/Creatinine Ratio 12.6; Calcium 8.5 mg/dL (8.5-10.1); Potassium 3.5 mmol/L (3.5-5.1)
[2021-12-24 05:45] LABS: Bilirubin, Total 0.6 mg/dL (0.2-1.0); Total Protein 7.1 g/dL (6.4-8.2)
[2021-12-24 05:50] LABS: Basophils # (auto) 0 10 ^3/uL (0-0.2); Basophils % (auto) 0.5 % (0.0-2.0); Eosinophils # (auto) 0.1 10 ^3/uL (0-0.8); Eosinophils % (auto) 1.1 % (0.0-7.0); Hematocrit 35.4 % (36.0-46.0); Hemoglobin 12.4 g/dL (12.2-16.2); Lymphocytes # (auto) 3.1 10 ^3/uL (0.4-5.4); Lymphocytes % (auto) 42.1 % (10.0-50.0); Mean Corpuscular Hemoglobin 32.9 pg (28.0-32.0); Mean Corpuscular Hgb Conc. 35.1 g/dL (32.0-36.0); Mean Corpuscular Volume 93.7 fL (80.0-100.0); Monocytes # (auto) 0.5 10 ^3/uL (0-1.3); Monocytes % (auto) 6.3 % (0.0-12.0); Neutrophils # (auto) 3.7 10 ^3/uL (1.6-8.6); Nucleated Red Blood Cells % 0.5 %; Red Blood Cells 3.77 10^6/uL (4.0-5.20); Red Cell Distribution Width 13.1 % (11.8-14.3); White Blood Cell 7.3 10^3/uL (4.4-10.8)
== END 2021-12-24 05:31 | disposition left against medical advice (07) ==
LOC: ER 04:27
DX: E11.65 Type 2 diabetes mellitus with hyperglycemia (principal); Z53.21 Procedure and treatment not carried out due to patient leaving prior to being seen by health care provider
CPT/HCPCS: 36415; 80053; 85025

== ENCOUNTER → 2022-01-11 | Emergency (ER) | payer BC, MEDICAID | END | disposition left against medical advice (07) | LOC: ER 13:46 | DX: R07.89 Other chest pain (principal); M25.552 Pain in left hip; Z53.21 Procedure and treatment not carried out due to patient leaving prior to being seen by health care provider | CPT/HCPCS: 93005 ==

== ENCOUNTER 2022-02-20 10:38 | Emergency (ER) | payer MEDICAID, OTHER ==
[~2022-02-20] VITALS: Ht 167.6 cm; Wt 78.0 kg
[2022-02-20 11:13] VITALS: BP 136/79
[2022-02-20] MEDS ORDERED: IBUPROFEN 800 MG TAB PO ONE (12:00)
[2022-02-20] MEDS ORDERED: IBUP800T27 PO (12:25)
== END 2022-02-20 12:37 | disposition home or self-care (01) ==
LOC: ER 10:38
DX: S16.1XXA Strain of muscle, fascia and tendon at neck level, initial encounter (principal); I10 Essential (primary) hypertension; Z88.6 Allergy status to analgesic agent; V43.62XA Car passenger injured in collision with other type car in traffic accident, initial encounter; Y93.89 Activity, other specified; Y92.89 Other specified places as the place of occurrence of the external cause; Y99.8 Other external cause status
CPT/HCPCS: 72040

== ENCOUNTER 2024-07-01 22:15 | Emergency (ER) | payer MEDICAID, SELFPAY ==
[~2024-07-01] VITALS: Ht 167.6 cm; Wt 85.0 kg
[~2024-07-01 22:15] MED LIST changes: +IBUP-1456 PO
--- NOTE | 2024-07-01 23:33 | DVH ---
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 Belia elate with point tenderness. No significant knee joint effusion. The visualized joint space is well maintained. The alignment is anatomical. There is no radiopaque foreign body.
[2024-07-01 23:49] VITALS: BP 146/98; PULSE 97; RESP 20; O2SAT 97
[2024-07-02] MEDS: KETOROLAC TROMETH 60MG/2ML VIAL IM ONE (00:01)
[2024-07-02] MEDS: HYDROcodone-ACET 5/325MG TAB PO ONE (00:01)
[2024-07-02] MEDS ORDERED: IBUP-1456 PO (00:32)
--- NOTE | 2024-07-02 00:32 | ED.PDOC ---
Back pain HPI HPI Comments This is a 33-year-old female presents to the ED via ambulance chief complaint left knee pain. Patient states she was walking on a sidewalk tripped and fell on her left knee. She is complaining of left knee pain 10/10 on pain scale sharp shooting pain. She denies numbness or weakness. Denies any other injury. 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 Ibuprofen (Ibuprofen) 800 Mg Tab, 800 MG PO TID PRN, #30 TAB Prov:EMILY CALVO PA 02/20/22 Reported Medications Quetiapine Fumerate (QUETIAPINE FUMARATE) 300 Mg Tab, 1 TAB PO HS 12/20/21 Risperidone (Risperidone) 1 Mg Tab, 1 TAB PO BID 12/20/21 Diltiazem Hcl (DILTIAZEM HCL ER) 240 Mg Cap, 1 CAP PO DAILY 12/20/21 Prazosin Hcl (Minipress) 5 Mg Cap, 1 CAP PO DAILY 12/20/21 Venlafaxine Hydrochloride (Venlafaxine Hcl) 100 Mg Tab, 1 PO DAILY 12/20/21 Buspirone Hcl (Buspirone Hcl) 15 Mg Tab, 15 MG PO TID for 30 Days 08/19/20 Mode of Arrival: EMS Past Medical History PAST MEDICAL HISTORY: Anxiety, Depression, HTN, Thyroid Surgical History: Appendectomy FINANCE TEACHER History: No Pertinent FINANCE TEACHER History Family History Family History: Reviewed,noncontributory to illness, Family hx of HTN Social History Smoker: Non-Smoker Alcohol: Denies ETOH Use Drugs: Denies Drug Use Lives In: Home Constitutional: denies: chills, diaphoresis, fatigue, fever, malaise, sweats, weakness, others EENTM: denies: blurred vision, double vision, ear bleeding, ear discharge, ear drainage, ear pain, ear ringing, eye pain, eye redness, hearing loss, mouth pain, mouth swelling, nasal discharge, nose bleeding, nose congestion, nose pain, photophobia, tearing, throat pain, throat swelling, voice changes, others Respiratory: denies: cough, hemoptysis, orthopnea, SOB at rest, shortness of breath, SOB with excertion, stridor, wheezing, others Cardiovascular: denies: chest pain, dizzy spells, diaphoresis, Dyspnea on exertion, edema, irregular heart beat, left arm pain, lightheadedness, palp itations, PND, syncope, others Gastrointestinal: denies: abdomen distended, abdominal pain, blood streaked bowels, constipated, diarrhea, dysphagia, difficulty swallowing, hematemesis, melena, nausea, poor appetite, poor fluid intake, rectal bleeding, rectal pain, vomiting, others Genitourinary: denies: abnormal vagina bleeding, burning, dyspareunia, dysuria, flank pain, frequency, hematuria, incontinence, pain, , vagina discharge, urgency, others Neurological: denies: dizziness, fainting, headache, left sided numbness, left sided weakness, numbness, paresthesia, pre-existing deficit, right sided numbness, right sided weakness, seizure, speech problems, tingling, tremors, weakness, others Musculoskeletal: reports: others (Left knee pain); denies: back pain, gout, joint pain, joint swelling, muscle pain, muscle stiffness, neck pain Integumetry: denies: bruises, change in color, change in hair/nails, dryness, laceration, lesions, lumps, rash, wounds, others Hematologic/Lymphatic: denies: anemia, blood clots, easy bleeding, easy bruising, swollen glands, others Endocrine: denies: excessive hunger, excessive sweating, excessive thirst, excessive urination, flushing, intolerance to cold, intolerance to heat, un explained weight gain, unexplained weight loss, others Psychiatric: denies: anxiety, bipolar disorder, depression, hopeless, panic disorder, schizophrenia, sleepless, suicidal, others Physical Exam General Appearance: No Apparent Distress, Normal HEENT: Pharynx Normal Neck: Full Range of Motion, Non-Tender Respiratory: Lungs Clear, No Respiratory Distress, Normal Breath Sounds Cardiovascular: No Murmur, Normal Peripheral Pulses, Regular Rate/Rhythm Breast Exam: Deferred Gastrointestinal: No Organomegaly, Non Tender, Soft Genitalia: Deferred Pelvic: Deferred Rectal: Deferred Extremities: Normal capillary refill, Normal inspection, Normal range of motion, Non-tender, No pedal edema Musculoskeletal : Location: Left Extremity Location: Knee (Tenderness palpated over patella with trace edema. No ballottement noted. Negative Mamie's and negative drawer test. Strength sensory and motion intact. Positive pedal pulse. No noted bony prominence, lacerations, abrasions, ecchymosis, or lesions.) Apperance: Normal Neurologic: Alert, automatic folder seamer II-XII nml as Tested, No Motor Deficits, Normal Affect, Normal Mood, No Sensory Deficits Cerebellar Function: Normal Reflexes: Normal Skin: Dry, Normal Color, Warm Lymphatic: No Adenopathy Was a procedure done? Was a procedure done?: No Back Pain Differential Dx Differential Diagnosis: Fracture, Musculoskeletal Pain X-Ray, Labs, Meds, VS Vital Signs Date Time Temp Pulse Resp B/P (MAP) Pulse Ox O2 Delivery O2 Flow Rate FiO2 07/01/24 23:49 97 20 97 Room Air 07/01/24 23:49 97 20 146/98 (114) 97 07/01/24 22:20 98.7 97 20 146/98 (114) 97 Current Medications Medications (Trade) Dose Ordered Sig/Meaghan Route Start Time Stop Time Status Last Admin Acetaminophen/ Hydrocodone Bitart ([place] 5/325MG Tab) 2 tab ONCE ONCE PO 07/02/24 00:00 07/02/24 00:01 DC 07/02/24 00:01 Ketorolac Tromethamine (Toradol Injection) 60 mg ONCE ONCE IM 07/02/24 00:00 07/02/24 00:01 DC 07/02/24 00:01 X-Ray, Labs, Meds, VS Comment Patient given Toradol 60 mg IM and [place] 10 mg she reports improvement in pain and function requesting discharge at this time. Left knee x-ray shows possible non placed patella fracture. Patient placed in patella knee stabilizer brace and crutches. Advised to follow up with PCP in 2- 3 days. Script ibuprofen 800 mg. Advised on rice. Advised to return to the ER for increasing pain numbness, weakness or any concerning symptoms. Patient agrees with discharge plan of care. Time of 1ST Reevaluation: 00:31 Reevaluation 1ST: Improved Patient Education/Counseling: Diagnosis, Treatment, Prognosis, Need For Follow Up Family Education/Counseling: Diagnosis, Treatment, Prognosis, Need For Follow Up Departure 1 Departure Time of Disposition: 00:31 Impression: Primary Impression: Fractured patella Qualified Codes: S82.002A - Unspecified fracture of left patella, initial encounter for closed fracture Disposition: 01 HOME / SELF CARE / HOMELESS Condition: Stable e-Prescriptions Ibuprofen (Ibuprofen) 800 Mg Tab 1 TAB PO TID PRN for 7 Days, #21 TAB 1 Refill Prov: ALFONSO VERDIN 07/02/24 Discharged With: Spouse Critical Care Note Critical Care Time?: No Stability Stability form required: ALFONSO Mcgee Jul 02, 2024 00:32
== END 2024-07-02 00:45 | disposition home or self-care (01) ==
LOC: EDBD 22:15 → ER 22:19
DX: S82.092A Other fracture of left patella, initial encounter for closed fracture (principal); I10 Essential (primary) hypertension; E03.9 Hypothyroidism, unspecified; Z88.8 Allergy status to other drugs, medicaments and biological substances; Z79.899 Other long term (current) drug therapy; Z90.49 Acquired absence of other specified parts of digestive tract; W01.0XXA Fall on same level from slipping, tripping and stumbling without subsequent striking against object, initial encounter; Y93.89 Activity, other specified; Y92.89 Other specified places as the place of occurrence of the external cause; Y99.8 Other external cause status
CPT/HCPCS: 73564; 96372; 99283; J1885

== ENCOUNTER 2025-07-21 15:53 | Emergency (ER) | payer SELFPAY, MEDICAID ==
[~2025-07-21] VITALS: Ht 167.6 cm; Wt 85.6 kg
[2025-07-21 15:54] VITALS: BP 135/79; PULSE 116; RESP 18; TEMP 97.8; O2SAT 95
== END 2025-07-21 19:35 | disposition left against medical advice (07) ==
LOC: ER 15:53
DX: R11.2 Nausea with vomiting, unspecified (principal); R19.7 Diarrhea, unspecified; Z53.21 Procedure and treatment not carried out due to patient leaving prior to being seen by health care provider
CPT/HCPCS: 82947; 82962